=== PATIENT | male | born 1980 | race Caucasian/White ===

== ENCOUNTER 2016-06-16 16:09 | Emergency (ER) | payer MEDICAID ==
[~2016-06-16] VITALS: Ht 170.2 cm; Wt 65.8 kg
[2016-06-16 16:21] VITALS: BP 147/92
--- NOTE | 2016-06-16 18:00 | NUR ---
Nichole cristina in [facility] - 06/16/16 at 1800 by DANY Patient ambulated to bed 05.
--- NOTE | 2016-06-16 18:06 | NUR ---
Patient ambulated to bed 05.
--- NOTE | 2016-06-16 18:12 | NUR ---
PATIENT PRESENTS TO ED DUE TO BACK PAIN RADIATING DOWN BILAT LEGS X1 DAY . PT STATES I DIDNT FALL, DENIES N/V/D; SKIN IS PINK/WARM/DRY; AAOX4 WITH EVEN AND STEADY GAIT; LUNGS CLEAR BL; HR EVEN AND REGULAR; PT DENIES ANY FEVER, CP, SOB, OR COUGH AT THIS TIME; PATIENT STATES PAIN OF 8/10 AT THIS TIME; PATIENT POSITIONED FOR COMFORT; HOB ELEVATED; BEDRAILS UP X2; BED DOWN. ER MD MADE AWARE OF PT STATUS.
--- NOTE | 2016-06-16 18:19 | NUR ---
PT FOR XRAY VIA WHEELCHAIR.
--- NOTE | 2016-06-16 18:44 | NUR ---
RELAYED URINE DIPSTICK TO DR. KINGSTON.
--- NOTE | 2016-06-16 18:45 | NUR ---
Dr. Padgett evaluating patient at bedside.
[2016-06-16] MEDS ORDERED: KETOROLAC 60 MG/2 ML VIAL IM ONE (18:50)
--- NOTE | 2016-06-16 19:10 | NUR ---
REPORT GIVEN TO RUSLAN
[2016-06-16 19:15] VITALS: BP 129/75
--- NOTE | 2016-06-16 19:15 | NUR ---
Patient discharged with v/s stable. Written and verbal after care instructions given and explained. Patient alert, oriented and verbalized understanding of instructions. Ambulatory with steady gait. All questions addressed prior to discharge. ID band removed. Patient advised to follow up with PMD. Rx of DEXTROMETHORPHAN HYDROBROMIDE AND MOTRIN given. Patient educated on indication of medication including possible reaction and side effects. Opportunity to ask questions provided and answered.
== END 2016-06-16 19:15 | disposition home or self-care (01) ==
LOC: MED 16:09
DX: S39.012A Strain of muscle, fascia and tendon of lower back, initial encounter (principal); S29.012A Strain of muscle and tendon of back wall of thorax, initial encounter; J06.9 Acute upper respiratory infection, unspecified; X58.XXXA Exposure to other specified factors, initial encounter; Y93.89 Activity, other specified; Y92.89 Other specified places as the place of occurrence of the external cause; Y99.8 Other external cause status
CPT/HCPCS: 72100; 81002; 96372; 99284; J1885